=== PATIENT | female | born 1990 | race Caucasian/White ===

== ENCOUNTER 2017-05-06 13:02 | Emergency (ER) | payer SELFPAY ==
[~2017-05-06] VITALS: Ht 157.5 cm; Wt 149.2 kg
[~2017-05-06 13:02] MED LIST: ACET500 PO; AZIT250 PO; BCP; CYCL10 PO; HYDACE5 PO; IBUP800 PO; MIRENA IUD; MULVITMINE PO; NEOPOLHCSU LEFTEAR; PRED10 PO; TRAM50 PO; Ultram50 MG PO
== END 2017-05-06 15:39 | disposition home or self-care (01) ==
LOC: ER 13:02
DX: M79.662 Pain in left lower leg (principal); Z88.0 Allergy status to penicillin; Z88.7 Allergy status to serum and vaccine; Z88.1 Allergy status to other antibiotic agents; Z88.8 Allergy status to other drugs, medicaments and biological substances
CPT/HCPCS: 93971; 99284

== ENCOUNTER 2017-06-06 07:33 | Emergency (ER) | payer SELFPAY ==
[~2017-06-06] VITALS: Ht 157.5 cm; Wt 149.7 kg
[2017-06-06] MEDS ORDERED: Neurontin 100100 MG PO (09:29)
== END 2017-06-06 09:32 | disposition home or self-care (01) ==
LOC: ER 07:33
DX: S39.012A Strain of muscle, fascia and tendon of lower back, initial encounter (principal); M54.42 Lumbago with sciatica, left side; X58.XXXA Exposure to other specified factors, initial encounter; Z88.0 Allergy status to penicillin; Z88.8 Allergy status to other drugs, medicaments and biological substances
CPT/HCPCS: 99282

== ENCOUNTER 2017-06-06 22:12 | Emergency (ER) | payer SELFPAY ==
[~2017-06-06] VITALS: Ht 157.5 cm; Wt 149.7 kg
[~2017-06-06 22:12] MED LIST changes: +Neurontin 100100 MG PO
== END 2017-06-06 23:15 | disposition home or self-care (01) ==
LOC: ER 22:12
DX: M54.32 Sciatica, left side (principal); Z88.0 Allergy status to penicillin; Z88.8 Allergy status to other drugs, medicaments and biological substances; Z88.1 Allergy status to other antibiotic agents; Z79.899 Other long term (current) drug therapy
CPT/HCPCS: 96372; 99283; J1885